=== PATIENT | female | born 1985 ===

== ENCOUNTER 2017-08-17 19:39 | Emergency (ER) | payer MEDICAID, OTHER ==
[2017-08-17 20:07] VITALS: BMI 23.8
[2017-08-17 20:11] VITALS: BP 100/62; PULSE 65; RESP 18; TEMP 98.2; O2SAT 99
--- NOTE | 2017-08-17 20:14 | C.PDOC ---
History Of Present Illness The patient reports 1 week history of right breast pain. Patient reports that she is currently breast feeding and states the pain is worse while breast feeding. Patient reports that she is weaning her child off of breast milk. Denies fever, rash, trauma, swelling, redness. Time Seen by Provider: 08/17/17 20:00 Chief Complaint (Nursing): Breast Problem History Per: Patient History/Exam Limitations: no limitations Onset/Duration Of Symptoms: Days (1 week ) Current Symptoms Are (Timing): Still Present Recent travel outside of the [place]: No Past Medical History Reviewed: Historical Data, Nursing Documentation, Vital Signs Vital Signs: Last Vital Signs Temp 98.2 F 08/17/17 20:07 Pulse 65 08/17/17 20:07 Resp 18 08/17/17 20:07 BP 100/62 08/17/17 20:07 Pulse Ox 99 08/17/17 21:08 - Medical History PMH: No Chronic Diseases - [facility] Procedures DELIVERY OF PRODUCTS OF CONCEPTION, EXTERNAL APPROACH (10/09/16) MONITORING OF POC, CARDIAC RATE, HAND TENNIS BALL COVERER APPROACH (10/09/16) REPAIR PERINEUM MUSCLE, OPEN APPROACH (10/09/16) Family History: States: Unknown Family Hx - Social History Hx Alcohol Use: No Hx Substance Use: No - Immunization History Hx Tetanus Toxoid Vaccination: No Hx Influenza Vaccination: Yes Hx Pneumococcal Vaccination: No Review Of Systems Except As Marked, All Systems Reviewed And Found Negative. Constitutional: Negative for: Fever, Chills Cardiovascular: Positive for: Other (right breast pain ). Negative for: Chest Pain, Palpitations Gastrointestinal: Negative for: Nausea, Vomiting Skin: Negative for: Rash Physical Exam - Physical Exam Appears: Non-toxic, No Acute Distress Skin: Warm, Dry, No Rash Head: Atraumatic, Normacephalic Eye(s): bilateral: Normal Inspection, PERRL, EOMI Ear(s): Bilateral: Normal Oral Mucosa: Moist Neck: Normal ROM, Supple Chest: Symmetrical, No Deformity, Tenderness (Mild diffuse tenderness of the right breast. No drainage, erythema, swelling, or rash. ) Cardiovascular: Rhythm Regular, No Murmur Respiratory: Normal Breath Sounds, No Rales, No Rhonchi, No Wheezing Neurological/Psych: Oriented x3, Normal Motor, Normal Sensation Gait: Steady ED Course And Treatment O2 Sat by Pulse Oximetry: 99 (room air ) Pulse Ox Interpretation: Normal Progress Note: Patient was given Keflex and Motrin. Medical Decision Making Medical Decision Making: Patient's physical exam appears normal however patient has mild tenderness. Will treat for possible mastitis since patient is breast feeding. Patient is instructed to continue to breast feeding and follow up with in 2 days for wound check. Disposition - Disposition Referrals: [facility] [Outside] Disposition: HOME/ ROUTINE Disposition Time: 20:30 Condition: GOOD Additional Instructions: Follow up with the medical doctor within 1-2 days. return if worsened. Prescriptions: Cephalexin [cephalexin] 1,000 mg PO BID #40 cap Ibuprofen [Motrin] 600 mg PO TID #21 tab Instructions: Mastitis (ED), Breast Care for the Breast Feeding Mother (ED) Forms: [employer] (Greek) - Clinical Impression Clinical Impression: Pain of breast, Mastitis - PA / LEGISLATIVE AIDE / Resident Statement MD/DO has reviewed & agrees with the documentation as recorded. - Scribe Statement The provider has reviewed the documentation as recorded by the Scribe iDanne Mathew All medical record entries made by the Billibjohn were at my direction and personally dictated by me. I have reviewed the chart and agree that the record accurately reflects my personal performance of the history, physical exam, medical decision making, and the department course for this patient. I have also personally directed, reviewed, and agree with the discharge instructions and disposition.
== END 2017-08-17 20:40 | disposition home or self-care (01) ==
LOC: C.ER 19:39 → SUPCPDRO 19:39 → C.ER 20:40
DX: N61.0 Mastitis without abscess (principal); N64.4 Mastodynia

== ENCOUNTER 2018-10-11 21:56 | Emergency (ER) | payer MEDICAID, OTHER, SELFPAY ==
[2018-10-11 21:56] VITALS: BMI 23.8
[2018-10-11 22:00] VITALS: BP 105/64; PULSE 69; RESP 16; TEMP 97.8; O2SAT 98
--- NOTE | 2018-10-11 22:41 | C.PDOC ---
History Of Present Illness 32 year old female presents to the ER with a complaint of vaginal itch and irritation for the past 3 days that has worsened today. Denies abdominal pain, vaginal bleeding, or vaginal discharge. Patient is 32 weeks with no OB complaints at this time. Time Seen by Provider: 10/11/18 22:08 Chief Complaint (Nursing): Female Genitourinary History Per: Patient History/Exam Limitations: no limitations Onset/Duration Of Symptoms: Days (3) Current Symptoms Are (Timing): Still Present Associated Symptoms: Other (Vaginal itching and irritation, no discharge or abdominal pain) Alleviating Factors: None Recent travel outside of the [place]: No Abnormal Vaginal Bleeding: No Past Medical History Reviewed: Historical Data, Nursing Documentation, Vital Signs Vital Signs: Last Vital Signs Temp 97.8 F 10/11/18 21:58 Pulse 69 10/11/18 21:58 Resp 16 10/11/18 21:58 BP 105/64 10/11/18 21:58 Pulse Ox 98 10/11/18 21:58 - [facility] Procedures DELIVERY OF PRODUCTS OF CONCEPTION, EXTERNAL APPROACH (10/09/16) MONITORING OF POC, CARDIAC RATE, ADMITTING SUPERVISOR APPROACH (10/09/16) REPAIR PERINEUM MUSCLE, OPEN APPROACH (10/09/16) Family History: States: Unknown Family Hx - Social History Hx Alcohol Use: No Hx Substance Use: No - Immunization History Hx Tetanus Toxoid Vaccination: No Hx Influenza Vaccination: Yes Hx Pneumococcal Vaccination: No Review Of Systems Gastrointestinal: Negative for: Abdominal Pain Genitourinary: Positive for: Other (Vaginal itching, Vaginal irritation). Negative for: Vaginal Discharge, Vaginal Bleeding Physical Exam - Physical Exam Appears: Non-toxic Skin: Normal Color, Warm, Dry Head: Atraumatic, Normacephalic Eye(s): bilateral: Normal Inspection Oral Mucosa: Moist Gastrointestinal/Abdominal: Soft, No Tenderness, Other (Gravid) Back: No CVA Tenderness Pelvic: Other (Erythema and irritation to vulvar area with no apparent discharge or bleeding. No speculum or bimanual exam done. ) Neurological/Psych: Oriented x3, Normal Speech ED Course And Treatment O2 Sat by Pulse Oximetry: 98 (Room air) Pulse Ox Interpretation: Normal Progress Note: Patient is resting comfortably in the ER in no acute distress, vitals are stable, will discharge home with Rx for antifungal cream and instructions to follow up with OB. Disposition Counseled Patient/Family Regarding: Diagnosis, Need For Followup, Rx Given - Disposition Disposition: HOME/ ROUTINE Disposition Time: 22:37 Condition: STABLE Additional Instructions: Use vaginal cream as directed Follow up with PMD Return to ER if worse Prescriptions: Clotrimazole [Gyne-Lotrimin] 21 gm VG HS #1 [email or web address] Instructions: Vaginal Yeast Infection (DC) Forms: [employer] (Georgian) - Clinical Impression Clinical Impression: Vaginal candidiasis, - PA / GRINDER OPERATOR / Resident Statement MD/DO has reviewed & agrees with the documentation as recorded. - Scribe Statement The provider has reviewed the documentation as recorded by the Scribjohn Robert All medical record entries made by the Billibjohn were at my direction and personally dictated by me. I have reviewed the chart and agree that the record accurately reflects my personal performance of the history, physical exam, medical decision making, and the department course for this patient. I have also personally directed, reviewed, and agree with the discharge instructions and disposition.
== END 2018-10-11 23:01 | disposition home or self-care (01) ==
LOC: C.ER 21:56
DX: O98.813 Other maternal infectious and parasitic diseases complicating pregnancy, third trimester (principal); B37.3 Candidiasis of vulva and vagina; Z3A.32 32 weeks gestation of pregnancy

== ENCOUNTER 2018-12-06 17:04 | Emergency (ER) | payer SELFPAY ==
[2018-12-06 17:05] VITALS: BMI 23.8
[2018-12-06 17:14] VITALS: BP 97/59; PULSE 72; RESP 20; TEMP 97.8; O2SAT 99
--- NOTE | 2018-12-06 17:45 | C.PDOC ---
History Of Present Illness 33 y/o female presents to the ED complaining of bilateral nipple pain. Of note, patient is currently breast feeding and for the last 3 days developed very sore nipples bilaterally. She also noticed some yellow discharge from one of the nipples the other day, none at present. States she has had mastitis in the past, with previous breast feeding. Denies any fever. Time Seen by Provider: 12/06/18 17:16 Chief Complaint (Nursing): Breast Problem History Per: Patient History/Exam Limitations: no limitations Onset/Duration Of Symptoms: Days Current Symptoms Are (Timing): Still Present Past Medical History Reviewed: Historical Data, Nursing Documentation, Vital Signs Vital Signs: Last Vital Signs Temp 97.8 F 12/06/18 17:07 Pulse 72 12/06/18 17:07 Resp 20 12/06/18 17:07 BP 97/59 L 12/06/18 17:07 Pulse Ox 99 12/06/18 17:07 Surgical History: No Surg Hx - [facility] Procedures DELIVERY OF PRODUCTS OF CONCEPTION, EXTERNAL APPROACH (10/09/16) MONITORING OF POC, CARDIAC RATE, GROUNDSKEEPER SUPERVISOR APPROACH (10/09/16) REPAIR PERINEUM MUSCLE, OPEN APPROACH (10/09/16) Family History: States: Unknown Family Hx - Social History Hx Tobacco Use: No Hx Alcohol Use: No Hx Substance Use: No - Immunization History Hx Tetanus Toxoid Vaccination: No Hx Influenza Vaccination: Yes Hx Pneumococcal Vaccination: No Review Of Systems Constitutional: Negative for: Fever, Chills, Weakness Eyes: Negative for: Redness Cardiovascular: Positive for: Other (nipple pain and discharge). Negative for: Chest Pain Respiratory: Negative for: Cough, Shortness of Breath Gastrointestinal: Negative for: Nausea, Vomiting, Diarrhea Genitourinary: Negative for: Dysuria Musculoskeletal: Negative for: Back Pain Skin: Negative for: Rash Neurological: Negative for: Weakness, Numbness, Dizziness Physical Exam - Physical Exam Appears: Well, Non-toxic, No Acute Distress Skin: Normal Color, Warm Head: Atraumatic, Normacephalic Eye(s): bilateral: Normal Inspection, PERRL, EOMI Nose: Normal Oral Mucosa: Moist Neck: Normal ROM, Supple Chest: Other (Tender, erythematous, mildly enlarged nipples bilaterally; No drainage from nipples; No appearance of absence or fluid collection, no surrounding erythema or streaking) Cardiovascular: Rhythm Regular, No Murmur Respiratory: Normal Breath Sounds, No Rales, No Rhonchi, No Wheezing Extremity: Bilateral: Atraumatic, Normal ROM Pulses: Left Radial: Normal, Right Radial: Normal Neurological/Psych: Oriented x3 ED Course And Treatment O2 Sat by Pulse Oximetry: 99 (RA) Pulse Ox Interpretation: Normal Medical Decision Making Medical Decision Making: Plan: Will treat patient for mastitis. Of note, patients infant is currently being treated for thrush. Patient was advised to apply the same medication to her nipples. Disposition Counseled Patient/Family Regarding: Diagnosis, Need For Followup, Rx Given - Disposition Disposition: HOME/ ROUTINE Disposition Time: 17:46 Condition: STABLE Prescriptions: Cephalexin 750 mg PO BID #20 cap Instructions: Mastitis (DC) Forms: [facility] (Venezuelan), General Discharge Instructions - Clinical Impression Clinical Impression: Mastitis - PA / SENSORY SCIENTIST / Resident Statement MD/DO has reviewed & agrees with the documentation as recorded. - Scribe Statement The provider has reviewed the documentation as recorded by the Billibjohn Leon All medical record entries made by the Billibjohn were at my direction and personally dictated by me. I have reviewed the chart and agree that the record accurately reflects my personal performance of the history, physical exam, medical decision making, and the department course for this patient. I have also personally directed, reviewed, and agree with the discharge instructions and disposition.
== END 2018-12-06 18:11 | disposition home or self-care (01) ==
LOC: C.ER 17:04
DX: N61.0 Mastitis without abscess (principal)